=== PATIENT | male | born 1980 | race Caucasian/White ===

== ENCOUNTER 2016-08-20 11:55 | Emergency (ER) | payer MEDICARE, OTHER | END 2016-08-20 12:53 | disposition home or self-care (01) | LOC: ER 11:55 | DX: M54.2 Cervicalgia (principal); V43.62XD Car passenger injured in collision with other type car in traffic accident, subsequent encounter; J44.9 Chronic obstructive pulmonary disease, unspecified; F17.210 Nicotine dependence, cigarettes, uncomplicated; Z79.899 Other long term (current) drug therapy; Z88.8 Allergy status to other drugs, medicaments and biological substances | CPT/HCPCS: 72040; 99283; 99283-25 ==